=== PATIENT | female | born 1955 | race Caucasian/White ===

== ENCOUNTER 2017-01-08 12:46 | Emergency (ER) | payer OTHER ==
[2017-01-08 12:57] VITALS: BP 101/66
--- NOTE | 2017-01-08 14:48 | UC ---
Skin Complaint HPI - HPI Summary HPI Summary: 61 YEAR OLD FEMALE PRESENTS WITH COMPLAINS OF RASH AFTER WORKING OUT IN THE YARD. - History of Current Complaint Chief Complaint: UCRash Time Seen by Provider: 01/08/17 13:02 Stated Complaint: RASH-POISION YONI Pain Intensity: 0 Pain Scale Used: 0-10 Numeric - Allergy/Home Medications Allergies/Adverse Reactions: Allergies Allergy/AdvReac Type Severity Reaction Status Date / Time Azithromycin [From Zithromax] Allergy Intermediate Rash Verified 01/08/17 12:57 Levofloxacin Allergy Intermediate Swelling Verified 01/08/17 12:57 Amoxicillin [From Augmentin] AdvReac Severe GI Upset Verified 01/08/17 12:57 Clavulanic Acid AdvReac Severe GI Upset Verified 01/08/17 12:57 [From Augmentin] Home Medications: Home Medications Calcitonin ([place]) [Miacalcin] 1 spray NASAL DAILY 01/08/17 [History Confirmed 01/08/17] Calcium 1,200 mg PO DAILY 01/08/17 [History Confirmed 01/08/17] Cholecalciferol [Vitamin D] 800 mg PO DAILY 01/08/17 [History Confirmed 01/08/17 ] Review of Systems Constitutional: Negative Skin: Rash Eyes: Negative ENT: Negative Respiratory: Negative Cardiovascular: Negative Gastrointestinal: Negative Genitourinary: Negative Motor: Negative Neurovascular: Negative Musculoskeletal: Negative Neurological: Negative Psychological: Negative All Other Systems Reviewed And Are Negative: Yes PMH/Surg Hx/FS Hx/Imm Hx - Surgical History Surgical History: Yes Surgery Procedure, Year, and Place: June 2014 subcutaneous bladder implant [facility]/implant in a sacral nerve. lumpectomies x3 (benign);. cyctoscopies ( [facility]). tonsilectomy. bilateral carpal tunnel. trigger finger left 4th and 5th fingers - Family History Known Family History: Positive: None Family History: R & N/C - Social History Alcohol Use: Weekly Alcohol Amount: 5-7 drinks/week Substance Use Type: None Substance Use Comment - Amount & Last Used: valium hydrocodone Smoking Status (MU): Former Smoker Type: Cigarettes Length of Time of Smoking/Using Tobacco: 10 yrs Have You Smoked in the Last Year: No When Did the Patient Quit Smoking/Using Tobacco: Physical Exam Triage Information Reviewed: Yes Vital Signs: Initial Vital Signs Temp 36.9 C 01/08/17 12:51 Pulse 76 01/08/17 12:51 Resp 16 01/08/17 12:51 BP 101/66 01/08/17 12:51 Pulse Ox 100 01/08/17 12:51 Eye Exam: Normal ENT Exam: Normal Dental Exam: Normal Neck exam: Normal Neck: Positive: 1 Respiratory Exam: Normal Cardiovascular Exam: Normal Abdominal Exam: Normal Musculoskeletal Exam: Normal Neurological Exam: Normal Psychological Exam: Normal Skin: Positive: rashes Course/Dx - Diagnoses Provider Diagnoses: RASH Discharge - Discharge Plan Condition: Stable Disposition: HOME Prescriptions: LoraTADine TAB(NF) [Claritin 10 MG TAB(NF)] 10 mg PO DAILY #30 tab Triamcinolone 0.1% CREAM (NF) [Kenalog 0.1% Cream (NF)] 1 applic .SEE ORDER TID PRN #90 gm PRN Reason: Itching predniSONE TAB* [Deltasone TAB*] 40 mg PO DAILY #10 tab Patient Education Materials: Urticaria (ED), Acute Rash (ED), Dermatitis (ED) Referrals: Bertrand Ovalle MD [Primary Care Provider] - If Needed
== END 2017-01-08 13:12 | disposition home or self-care (01) ==
LOC: UCEAST 12:46
DX: R21 Rash and other nonspecific skin eruption (principal); Z88.3 Allergy status to other anti-infective agents; Z87.891 Personal history of nicotine dependence
CPT/HCPCS: 99212; G0463

== ENCOUNTER 2019-04-11 09:17 | Emergency (ER) | payer MEDICARE ==
[2019-04-11 09:38] VITALS: BP 117/72
--- NOTE | 2019-04-11 10:15 | UC ---
Respiratory Complaint HPI - HPI Summary HPI Summary: The patient is a 63-year-old asthmatic who has been ill for about a week. Her symptoms started with nasal congestion and sinus pressure. She flew in to [place] a few days ago and since that flight has had bilateral ear pain. She states that her cough has moved down into her chest and she has started her asthma medicines. She denies any chest pain or shortness of breath. She denies any fever chills or myalgias. She has no sore throat. - History of Current Complaint Chief Complaint: UCRespiratory Stated Complaint: URI Time Seen by Provider: 04/11/19 10:14 Hx Obtained From: Patient Onset/Duration: Gradual Onset, Lasting Days Timing: Constant Severity Initially: Mild Severity Currently: Moderate Pain Intensity: 7 Pain Scale Used: 0-10 Numeric Character: Cough: Nonproductive Aggravating Factors: Nothing Associated Signs And Symptoms: Positive: Wheezing, Nasal Congestion, Sinus Discomfort - Allergies/Home Medications Allergies/Adverse Reactions: Allergies Allergy/AdvReac Type Severity Reaction Status Date / Time azithromycin Allergy Intermediate Rash Verified 04/11/19 09:37 levofloxacin Allergy Intermediate Swelling Verified 04/11/19 09:37 amoxicillin AdvReac Severe GI Upset Verified 04/11/19 09:37 clavulanic acid AdvReac Severe GI Upset Verified 04/11/19 09:37 Home Medications: Home Medications Calcium Carbonate [Calcium] 1 tab PO DAILY 04/11/19 [History Confirmed 04/11/19] Ibuprofen 600 mg PO ONCE PRN 04/11/19 [History Confirmed 04/11/19] Prelief Bladder 1 tab PO AC 04/11/19 [History Confirmed 04/11/19] PMH/Surg Hx/FS Hx/Imm Hx Previously Healthy: Yes Respiratory History: Asthma, Bronchitis - Surgical History Surgical History: Yes Surgery Procedure, Year, and Place: June 2014 subcutaneous bladder implant [facility]/implant in a sacral nerve. lumpectomies x3 (benign);. cyctoscopies ( [facility]). tonsilectomy. bilateral carpal tunnel. trigger finger left 4th and 5th fingers - Family History Known Family History: Positive: Hypertension, Respiratory Disease Family History: R & N/C - Social History Alcohol Use: Weekly Alcohol Amount: 5-7 glasses per week Substance Use Type: None Substance Use Comment - Amount & Last Used: valium hydrocodone Smoking Status (MU): Former Smoker Type: Cigarettes Length of Time of Smoking/Using Tobacco: 10 yrs Have You Smoked in the Last Year: No When Did the Patient Quit Smoking/Using Tobacco: Review of Systems All Other Systems Reviewed And Are Negative: Yes Constitutional: Positive: Negative Skin: Positive: Negative Eyes: Positive: Negative ENT: Positive: Ear Ache, Nasal Discharge, Sinus Congestion, Sinus Pain/ Tenderness Respiratory: Positive: Cough Cardiovascular: Positive: Negative Gastrointestinal: Positive: Negative Genitourinary: Positive: Negative Motor: Positive: Negative Neurovascular: Positive: Negative Musculoskeletal: Positive: Negative Neurological: Positive: Negative Psychological: Positive: Negative Physical Exam Triage Information Reviewed: Yes Appearance: Well-Appearing, No Pain Distress, Well-Nourished Vital Signs: Initial Vital Signs Temp 98.5 F 04/11/19 09:33 Pulse 76 04/11/19 09:33 Resp 18 04/11/19 09:33 BP 117/72 04/11/19 09:33 Pulse Ox 97 04/11/19 09:33 Vital Signs Reviewed: Yes Eyes: Positive: Conjunctiva Clear ENT: Positive: Pharynx normal, Nasal congestion, TM bulging, Sinus tenderness - mild, Uvula midline. Negative: Hearing grossly normal - bilateral Hearing Aids , Nasal drainage, Tonsillar swelling, Tonsillar exudate, Trismus, Muffled voice , Hoarse voice, Dental tenderness Dental Exam: Normal Neck: Positive: Supple, Nontender, No Lymphadenopathy Respiratory: Positive: Normal breath sounds, No respiratory distress, No accessory muscle use, Other: - bronchospastic cough and wheeze with forced expiration Cardiovascular: Positive: RRR, No Murmur Musculoskeletal: Positive: ROM Intact, No Edema Neurological: Positive: Alert Psychological Exam: Normal Skin Exam: Normal Respiratory Course/Dx - Differential Dx/Diagnosis Provider Diagnosis: Bilateral serous otitis media, Viral URI with cough, Bronchospasm Discharge ED - Sign-Out/Discharge Documenting (check all that apply): Patient Departure All imaging exams completed and their final reports reviewed: No Studies - Discharge Plan Condition: Stable Disposition: HOME Prescriptions: predniSONE [Prednisone 20 MG TAB] 20 mg PO DAILY #4 tab Patient Education Materials: Serous Otitis Media (ED), Upper Respiratory Infection (ED) Additional Instructions: recheck in 4-5 days if not improved use asthma inhalers as directed - Billing Disposition and Condition Condition: STABLE Disposition: Home
[2019-04-11] MEDS ORDERED: predniSONE TAB* 20 MG PO ONE (10:27)
== END 2019-04-11 10:37 | disposition home or self-care (01) ==
LOC: UCEAST 09:17
DX: H65.03 Acute serous otitis media, bilateral (principal); J06.9 Acute upper respiratory infection, unspecified; R05 Cough; J45.909 Unspecified asthma, uncomplicated; Z87.891 Personal history of nicotine dependence; Z88.1 Allergy status to other antibiotic agents; Z88.0 Allergy status to penicillin
CPT/HCPCS: 99212; G0463; J7512